=== PATIENT | male | born 1940 | race Two or more races ===

== ENCOUNTER 2024-02-11 15:10 | Emergency (ER) | payer OTHER ==
[~2024-02-11] VITALS: Ht 162.6 cm; Wt 72.6 kg
[2024-02-11] MEDS ORDERED: GLIMEPIRIDE4 M1 (15:43)
[2024-02-11] MEDS ORDERED: TRAZODONE HCL150 MG (15:43)
[2024-02-11] MEDS ORDERED: TENORMIN50 M1 (15:43)
[2024-02-11] MEDS ORDERED: ZESTRIL10 M1 (15:44)
[2024-02-11] MEDS ORDERED: HYDROCHLOROTH12.5 M2 (15:44)
[2024-02-11] MEDS ORDERED: LEVO-T50 MCG (15:44)
[2024-02-11] MEDS ORDERED: SIMVASTATIN5 MG (15:44)
[2024-02-11] MEDS ORDERED: CLINDAMYCIN PHOSPHATE 150 MG/ML (600mg) IM ONE (16:00)
== END 2024-02-11 16:07 | disposition home or self-care (01) ==
LOC: ER 15:11
DX: L02.91 Cutaneous abscess, unspecified (principal); I10 Essential (primary) hypertension; E11.9 Type 2 diabetes mellitus without complications; Z88.6 Allergy status to analgesic agent
CPT/HCPCS: 96372; 99282; J3490